=== PATIENT | female | born 1950 | race Caucasian/White ===

== ENCOUNTER → 2017-04-26 | Outpatient (CLI) | payer OTHER, MEDICARE, BC | END | disposition home or self-care (01) | LOC: RAD.S 13:19 | DX: N63 Unspecified lump in breast (principal); M79.631 Pain in right forearm; S59.911A Unspecified injury of right forearm, initial encounter; M19.031 Primary osteoarthritis, right wrist; E87.1 Hypo-osmolality and hyponatremia; R93.8 Abnormal findings on diagnostic imaging of other specified body structures; V89.2XXA Person injured in unspecified motor-vehicle accident, traffic, initial encounter ==